=== PATIENT | female | born 1995 | race Caucasian/White ===

== ENCOUNTER 2017-01-22 20:35 | Emergency (ER) | payer OTHER ==
[~2017-01-22] VITALS: Ht 167.6 cm; Wt 79.4 kg
[~2017-01-22 20:35] MED LIST: MACROBID100 M1 PO
[2017-01-22 21:00] LABS: BILIRUBIN NEGATIVE (NEGATIVE); BLOOD 1+ (NEGATIVE); CLARITY SL CLOUDY (CLEAR); COLOR YELLOW (YELLOW); GLUCOSE NEGATIVE (NEGATIVE); KETONE TRACE (NEGATIVE); LEUKO ESTERASE 1+ (NEGATIVE); NITRITE NEGATIVE (NEGATIVE); PH 7.5 (5.0-9.0); PROTEIN NEGATIVE (NEGATIVE)
[2017-01-22 21:08] LABS: URINE REFLEX COMMENT YES (NO)
[2017-01-22 21:10] LABS: WBC 31-40 wbc/hpf (0-5)
[2017-01-22 21:11] LABS: BACTERIA 2+
[2017-01-22] MEDS ORDERED: CIPRO250 MG PO (21:17)
[2017-01-22] MEDS ORDERED: PYRIDIUM200 M1 PO (21:17)
== END 2017-01-22 21:29 | disposition home or self-care (01) ==
LOC: ED 20:35
PROVIDERS: Emergency Medicine Emergency Medical Services
DX: N39.0 Urinary tract infection, site not specified (principal); R30.0 Dysuria; R31.9 Hematuria, unspecified; F17.200 Nicotine dependence, unspecified, uncomplicated

== ENCOUNTER 2017-08-21 10:47 | Emergency (ER) | payer OTHER ==
[~2017-08-21] VITALS: Ht 165.1 cm; Wt 79.4 kg
[~2017-08-21 10:47] MED LIST changes: +CIPRO250 MG PO; +PYRIDIUM200 M1 PO
[2017-08-21 11:28] LABS: BILIRUBIN 2+ (NEGATIVE); BLOOD TRACE-INTACT (NEGATIVE); CLARITY CLOUDY (CLEAR); COLOR YELLOW (YELLOW); GLUCOSE NEGATIVE (NEGATIVE); KETONE 3+ (NEGATIVE); LEUKO ESTERASE 2+ (NEGATIVE); NITRITE NEGATIVE (NEGATIVE); PH 6.5 (5.0-9.0); SPECIFIC GRAVITY 1.025 (1.005-1.030)
[2017-08-21 11:36] LABS: BACTERIA 2+; EPITHELIAL CELLS 16-20; WBC TNTC wbc/hpf (0-5)
[2017-08-21] MEDS ORDERED: CEPHALEXIN500 M1 PO (12:27)
== END 2017-08-21 13:02 | disposition home or self-care (01) ==
LOC: ED 10:47
PROVIDERS: Emergency Medicine
DX: O23.41 Unspecified infection of urinary tract in pregnancy, first trimester (principal); Z3A.09 9 weeks gestation of pregnancy

== ENCOUNTER 2017-12-11 15:26 | Emergency (ER) | payer OTHER ==
[~2017-12-11] VITALS: Ht 210.8 cm; Wt 95.3 kg
[~2017-12-11 15:26] MED LIST changes: +CEPHALEXIN500 M1 PO
[2017-12-11] MEDS ORDERED: PRENATAL VITAM1 EAC4 PO (15:29)
[2017-12-11] MEDS ORDERED: AMOXICILLIN500 M2 PO (15:58)
== END 2017-12-11 16:02 | disposition home or self-care (01) ==
LOC: ED 15:26
DX: O99.512 Diseases of the respiratory system complicating pregnancy, second trimester (principal); J02.9 Acute pharyngitis, unspecified; O26.892 Other specified pregnancy related conditions, second trimester; H66.93 Otitis media, unspecified, bilateral; Z3A.25 25 weeks gestation of pregnancy; Z79.899 Other long term (current) drug therapy

== ENCOUNTER 2018-10-26 22:07 | Emergency (ER) | payer OTHER ==
[~2018-10-26] VITALS: Ht 165.1 cm; Wt 113.4 kg
[~2018-10-26 22:07] MED LIST changes: +AMOXICILLIN500 M2 PO; +PRENATAL VITAM1 EAC4 PO
[2018-10-26 22:33] LABS: BASO % 0.2 % (0.0-1.0); EOS % 0.1 % (1.0-4.0); HEMATOCRIT 45.3 % (37.0-47.0); HEMOGLOBIN 14.5 g/dl (12.0-16.0); LYMPH # 1.1 10*3/uL (1.3-4.4); LYMPH % 10.6 % (27.0-41.0); MEAN CELL VOLUME 82.8 fl (81.0-99.0); MEAN CORPUSCULAR HGB 26.5 pg (27.0-31.0); MEAN PLATELET VOLUME 10.1 fl (9.6-12.3); MONO # 0.8 10*3/uL (0.1-1.0); MONO % 7.5 % (3.0-9.0); NEUT # 8.1 10*3/uL (2.3-7.9); NEUT % 81.1 % (47.0-73.0); PLATELET COUNT AUTOMATED 309 10*3/uL (130-400); RED BLOOD COUNT 5.47 10*6/uL (4.10-5.10); RED CELL DISTRI WIDTH 15.3 % (0-14.5)
[2018-10-26 22:58] LABS: ALBUMIN 3.4 gm/dl (3.1-4.5); ALKALINE PHOSPHATASE 108 U/L (45-117); BUN 13 mg/dl (7-24); CHLORIDE 104 mmol/L (98-107); CREATININE 1.06 mg/dL (0.55-1.02); LIPASE 71 U/L (73-393); POTASSIUM 3.8 mmol/L (3.5-5.1); SGPT/ALT 22 U/L (12-78); SODIUM 139 mmol/L (136-145); TOTAL PROTEIN 8.2 gm/dL (6.4-8.2)
[2018-10-26 23:01] LABS: SGOT/AST 12 IU/L (3-35)
[2018-10-26] MEDS ORDERED: ONDANSETRON4 MG SL (23:17)
== END 2018-10-26 23:37 | disposition home or self-care (01) ==
LOC: ED 22:07
PROVIDERS: Student in an Organized Health Care Education/Training Program
DX: R11.2 Nausea with vomiting, unspecified (principal); R19.7 Diarrhea, unspecified; R52 Pain, unspecified

== ENCOUNTER 2020-02-03 20:49 | Emergency (ER) | payer OTHER ==
[~2020-02-03] VITALS: Wt 86.2 kg
[~2020-02-03 20:49] MED LIST changes: +ONDANSETRON4 MG SL
[2020-02-03 22:44] LABS: BILIRUBIN 1+ (NEGATIVE); CLARITY SL CLOUDY (CLEAR); COLOR YELLOW (YELLOW); GLUCOSE NEGATIVE (NEGATIVE); KETONE NEGATIVE (NEGATIVE)
[2020-02-03 22:45] LABS: BLOOD 3+ (NEGATIVE); LEUKO ESTERASE TRACE (NEGATIVE); NITRITE NEGATIVE (NEGATIVE); PH 6.5 (5.0-9.0); UROBILINOGEN 0.2 E.U./dl (0.2-1.0)
[2020-02-03 22:46] LABS: EPITHELIAL CELLS TNTC; RBC 21-30 rbc/hpf (0-2)
[2020-02-03 22:47] LABS: BACTERIA 3+; MUCOUS 1+
[2020-02-03] MEDS ORDERED: CEPHALEXIN500 M1 PO (23:13)
== END 2020-02-04 00:46 | disposition home or self-care (01) ==
LOC: ED 20:49
PROVIDERS: Nurse Practitioner Family
DX: O46.91 Antepartum hemorrhage, unspecified, first trimester (principal); Z3A.01 Less than 8 weeks gestation of pregnancy